=== PATIENT | male | born 1945 | race Caucasian/White ===

== ENCOUNTER 2016-11-21 09:13 | Emergency (ER) | payer MEDICARE ==
[~2016-11-21] VITALS: Ht 182.9 cm; Wt 81.0 kg
[~2016-11-21 09:13] MED LIST: ASPI81 PO; NOVOLOGP2 SQ; SIMV5TAB32 PO; TAB-TAB PO; TAMS0.4C67 PO; VENTAER INH
[2016-11-21 09:23] VITALS: BP 150/72; PULSE 92; RESP 18; TEMP 99.4
[2016-11-21] MEDS ORDERED: ZOCO40TA PO (09:40)
[2016-11-21] MEDS ORDERED: HUMALOG INSULIN PUMP (09:40)
[2016-11-21] MEDS ORDERED: TAMS5CAP PO (09:40)
[2016-11-21] MEDS ORDERED: MULTTAB67 PO (09:40)
[2016-11-21] MEDS ORDERED: ASPI81CH CHEW (09:40)
--- NOTE | 2016-11-21 09:43 | PD ---
HPI Chief Complaint: Complaint Time Seen by Provider: 09:33 Travel History International Travel<30 days: No Contact w/Intl Traveler<30days: No Traveled to known affect area: No History of Present Illness HPI This 71-year-old male says that last night he started noticing blood in his urine and it has been present since then area this has never happened to him before. He says that several years ago he had a swollen prostate but no surgery was done at that time. He is generally able to void well. He feels like he is not emptying his bladder completely when he voids now. He has not had fever or chills he does have a history of diabetes and is on an insulin pump. PFSH Past Medical History Hx Anticoagulant Therapy: Yes (BABY ASPIRIN) Arthritis: No Asthma: Yes Autoimmune Disease: No Blood Disorders: No Anxiety: No Depression: Yes Heart Rhythm Problems: No Cancer: Yes (SKIN CA) Cardiovascular Problems: Yes High Cholesterol: Yes Chemotherapy: No Chest Pain: Yes Congestive Heart Failure: No COPD: No Cerebrovascular Accident: No Diabetes: Yes Diminished Hearing: No Endocrine: Yes Gastrointestinal Disorders: Yes GERD: No Glaucoma: No Genitourinary: No Headaches: Yes Hepatitis: No Hiatal Hernia: No Hypertension: No Kidney Stones: No Musculoskeletal: Yes Neurologic: Yes Psychiatric: Yes Respiratory: Yes Integumentary: Yes (SKIN CANCER) Myocardial Infarction: No Radiation Therapy: No Renal Failure: No Seizures: No Sickle Cell Disease: No Sleep Apnea: No Thyroid Disease: No Ulcer: No Past Surgical History Abdominal Surgery: Yes (HERNIA REPAIR) AICD: No Cardiac Surgery: No Ear Surgery: No Endocrine Surgery: No Eye Surgery: No Genitourinary Surgery: No Gynecologic Surgery: No Oral Surgery: No Pacemaker: No Thoracic Surgery: No Other Surgery: Yes (INGROWN TOENAIL) Social History Alcohol Use: Yes (OCCASIONAL) Tobacco Use: No Substance Use: No Allergies-Medications (Allergen,Severity, Reaction): Coded Allergies: Amoxicillin (Verified Allergy, Severe, Hives, 11/21/16) Bactrim (Verified Allergy, Severe, Hives, 11/21/16) Cephalosporins (Verified Allergy, Severe, Rash, 11/21/16) Doxycycline (Verified Allergy, Severe, Rash, 11/21/16) Erythromycin (Verified Allergy, Severe, 11/21/16) RASH Kwell (Verified Allergy, Severe, Cough, 11/21/16) Penicillin (Verified Allergy, Severe, Rash, 11/21/16) Prevacid (Verified Allergy, Severe, 11/21/16) Sulfa (Verified Allergy, Severe, Rash, 11/21/16) Cipro (Verified Allergy, Mild, 11/21/16) Prilosec (Verified Allergy, Mild, 11/21/16) Reported Meds & Prescriptions Reported Meds & Active Scripts Active Reported [Humalog Insulin Pump] Flomax (Tamsulosin HCl) 0.4 Mg Cap 0.4 Mg PO HS Zocor (Simvastatin) 40 Mg Tab 40 Mg PO DAILY Multiple Vitamin 1 Tab 1 Tab PO DAILY Aspirin 81 Mg Chew 81 Mg CHEW DAILY Review of Systems General / Constitutional: No: Fever, Chills Eyes: No: Diploplia, Blurred Vision HENT: No: Headaches, Vertigo Cardiovascular: No: Chest Pain or Discomfort, Palpitations Respiratory: No: Cough, Shortness of Breath Gastrointestinal: No: Vomiting, Diarrhea Genitourinary: Positive: Dysuria, Hematuria Musculoskeletal: No: Arthralgias Skin: No Rash, No Lumps Neurologic: No: Weakness Physical Exam Narrative GENERAL: Well-developed male SKIN: Focused skin assessment warm/dry. HEAD: Atraumatic. Normocephalic. EYES: Pupils equal and round. No scleral icterus. No injection or drainage. ENT: No nasal bleeding or discharge. Mucous membranes pink and moist. NECK: Trachea midline. No JVD. CARDIOVASCULAR: Regular rate and rhythm. No murmur appreciated. RESPIRATORY: No accessory muscle use. Clear to auscultation. Breath sounds equal bilaterally. GASTROINTESTINAL: Abdomen soft, non-tender, nondistended. Hepatic and splenic margins not palpable. There is some suprapubic tenderness MUSCULOSKELETAL: No obvious deformities. No clubbing. No cyanosis. No edema. NEUROLOGICAL: Awake and alert. No obvious cranial nerve deficits. Motor grossly within normal limits. Normal speech. PSYCHIATRIC: Appropriate mood and affect; insight and judgment normal. Data Data Last Documented VS Vital Signs Date Time Temp Pulse Resp B/P Pulse Ox O2 Delivery O2 Flow Rate FiO2 11/21/16 09:23 99.4 92 18 150/72 Orders Urinalysis - C+S If Indicated (11/21/16 09:34) Complete Blood Count With Diff (11/21/16 09:39) Basic Metabolic Panel (Bmp) (11/21/16 09:39) Prothrombin Time / Inr (Pt) (11/21/16 09:39) Act Partial Throm Time (Ptt) (11/21/16 09:39) Urinary Catheter Insert/Apply (11/21/16 09:39) Acetamin-Hydrocod 325-5 Mg (Congress 5-325 (11/21/16 10:00) Urine Culture (11/21/16 09:40) Labs Laboratory Tests Test 11/21/16 11/21/16 11/21/16 09:40 09:55 10:20 Urine Collection Type CLEAN CATCH Urine Color RED Urine Turbidity CLOUDY Urine pH 6.5 Urine Specific [place] 1.016 Urine Protein 300 OR GREATER mg/dL Urine Glucose (UA) NEG mg/dL Urine Ketones TRACE mg/dL Urine Occult Blood LARGE Urine Nitrite POS Urine Bilirubin NEG Urine Leukocyte Esterase MOD Urine RBC INNUM /hpf Urine WBC 15-19 /hpf Urine WBC Clumps MOD Urine Bacteria OCC /hpf Microscopic Urinalysis Comment CULTURE INDICATED White Blood Count 12.2 TH/MM3 Red Blood Count 5.53 MIL/MM3 Hemoglobin 16.5 GM/DL Hematocrit 49.1 % Mean Corpuscular Volume 88.9 FL Mean Corpuscular Hemoglobin 29.9 PG Mean Corpuscular Hemoglobin 33.7 % Concent Red Cell Distribution Width 13.1 % Platelet Count 186 TH/MM3 Mean Platelet Volume 8.9 FL Neutrophils (%) (Auto) 81.5 % Lymphocytes (%) (Auto) 7.8 % Monocytes (%) (Auto) 6.4 % Eosinophils (%) (Auto) 0.6 % Basophils (%) (Auto) 3.7 % Neutrophils # (Auto) 9.8 TH/MM3 Lymphocytes # (Auto) 1.0 TH/MM3 Monocytes # (Auto) 0.8 TH/MM3 Eosinophils # (Auto) 0.1 TH/MM3 Basophils # (Auto) 0.5 TH/MM3 CBC Comment AUTO DIFF Differential Comment AUTO DIFF CONFIRMED Prothrombin Time 10.1 SEC Prothromb Time International 0.9 RATIO Ratio Activated Partial 26.2 SEC Thromboplast Time Sodium Level 143 MEQ/L Potassium Level 4.3 MEQ/L Chloride Level 105 MEQ/L Carbon Dioxide Level 29.2 MEQ/L Anion Gap 9 MEQ/L Blood Urea Nitrogen 18 MG/DL Creatinine 1.10 MG/DL Estimat Glomerular Filtration 66 ML/MIN Rate Random Glucose 97 MG/DL Calcium Level 9.2 MG/DL MDM Medical Decision Making Medical Screen Exam Complete: Yes Emergency Medical Condition: Yes Medical Record Reviewed: Yes Differential Diagnosis Differential includes hematuria, UTI, bladder tumor, urinary retention Narrative Course Patient does have gross hematuria. The catheter was inserted but patient is not in retention and only 100 cc of urine present. His lab work is unremarkable with the exception of hematuria. He is allergic to multiple antibiotics and I'm neck and put him on antibiotics at this time. I have discussed the importance that he see a urologist with the patient. He says his works for [employer] and he will follow up with her urologist Diagnosis Primary Impression: Hematuria Additional Instructions: Call urologist for follow-up appointment Disposition: DISCHARGE HOME Condition: Stable Royer Griffith MD November 21, 2016 09:43
[2016-11-21 09:56] LABS: BLOOD, URINE LARGE (NEG); GLUCOSE,URINE NEG (NEG); KETONE, URINE TRACE mg/dL (NEG); NITRITE,URINE POS (NEG); PH, URINE 6.5 (5.0-8.5)
[2016-11-21 09:59] LABS: METHOD OF COLLECTION CLEAN CATCH; URINE COLOR RED (YELLW/STRAW)
[2016-11-21 10:00] LABS: BACTERIA, URINE OCC /hpf; COMMENT (UR) CULTURE INDICATED; CULTURE IF INDICATED CULTURE INDICATED; RBC, URINE INNUM /hpf (0-3); WBC, URINE 15-19 /hpf (0-5)
[2016-11-21] MEDS ORDERED: ACETAMINOPHEN/HYDROcodone 325 MG/5 MG TAB PO ONE (10:00)
[2016-11-21 10:07] LABS: AUTOMATED NEUTROPHIL # 9.8 TH/MM3 (1.8-7.7); BASOPHIL # 0.5 TH/MM3 (0-0.2); BASOPHIL % 3.7 % (0.0-2.0); EOSINOPHIL # 0.1 TH/MM3 (0-0.4); EOSINOPHIL % 0.6 % (0.0-4.0); HEMATOCRIT 49.1 % (39.0-51.0); LYMPH % 7.8 % (9.0-44.0); MEAN CELL VOLUME 88.9 FL (80.0-100.0); MEAN CORPUSCULAR HEMOGLOBIN 29.9 PG (27.0-34.0); MEAN CORPUSCULAR HGB CONC 33.7 % (32.0-36.0); MONO % 6.4 % (0.0-8.0); NEUT % 81.5 % (16.0-70.0); PLATELET COUNT 186 TH/MM3 (150-450); RED BLOOD COUNT 5.53 MIL/MM3 (4.50-5.90); RED CELL DISTRIBUTION WIDTH 13.1 % (11.6-17.2); WHITE BLOOD COUNT 12.2 TH/MM3 (4.0-11.0)
[2016-11-21 10:11] LABS: HEMO FLAGS AUTO DIFF
[2016-11-21 10:39] LABS: POTASSIUM 4.3 MEQ/L (3.5-5.1)
[2016-11-21 10:43] LABS: BICARBONATE 29.2 MEQ/L (21.0-32.0)
[2016-11-21 10:43] LABS: SCAN/DIFF AUTO DIFF CONFIRMED
[2016-11-21 10:45] LABS: APTT (PATIENT) 26.2 SEC (24.3-30.1); INTERNATIONAL NORMALIZED RATIO 0.9 RATIO; PROTHROMBIN TIME - PATIENT 10.1 SEC (9.8-11.6)
[2016-11-21 11:09] VITALS: BP 154/75; PULSE 75; RESP 16; O2SAT 97
== END 2016-11-21 11:13 | disposition home or self-care (01) ==
LOC: PHED 09:13
DX: R31.0 Gross hematuria (principal); J45.909 Unspecified asthma, uncomplicated; F32.9 Major depressive disorder, single episode, unspecified; E78.00 Pure hypercholesterolemia, unspecified; E11.9 Type 2 diabetes mellitus without complications; Z79.4 Long term (current) use of insulin; Z79.899 Other long term (current) drug therapy; Z79.82 Long term (current) use of aspirin; Z88.1 Allergy status to other antibiotic agents
CPT/HCPCS: 51702; 80048; 81001; 85025; 85610; 85730; 87077; 87086; 87186